=== PATIENT | female | born 1985 | race Caucasian/White ===

== ENCOUNTER 2021-06-19 02:00 | Emergency (ER) | payer SELFPAY ==
[2021-06-19] MEDS ORDERED: Cephalexin 500 MG Cap PO ONE (02:42)
[2021-06-19] MEDS ORDERED: Diphtheria,Pertussis(Acell),Tetanus Vaccine 0.5 ML Syringe IM ONE (02:44)
--- NOTE | 2021-06-19 02:49 | EDM.PDOC ---
ED HPI GENERAL MEDICAL PROBLEM - General Chief Complaint: Lower Extremity Injury/Pain Stated Complaint: Leg injury, one week ago Time Seen by Provider: 06/19/21 02:35 Source of Information: Reports: Patient History Limitations: Reports: No Limitations - History of Present Illness INITIAL COMMENTS - FREE TEXT/NARRATIVE: Patient comes emergency department today with complaints of redness and swelling to her left lower extremity. This patient approximately a week ago was standing on a chair when she lost her balance falling backwards onto the ground striking her head but did not lose consciousness and during the fall somehow struck the left anterior aspect of her left lower extremity. For the past week she has been ambulating on it with some pain that has pretty much resolved. Today she noticed that she had some increased swelling to the left lower extremity but no increased pain. When she fell she did not lose consciousness. Today she has no head neck or back pain. She denies any paresthesias of her lower extremities. She is able to ambulate without difficulty. She is concerned for the increased swelling on her tibia of the left lower extremity. She has had no fever or chills. No difficulty with ambulation. She is unsure of when her last tetanus shot was. right lower leg palacios Pain Score (Numeric/FACES): 7 - Related Data Allergies Allergy/AdvReac Type Severity Reaction Status Date / Time egg yolk Allergy Nausea and Verified 06/19/21 03:04 Vomiting Latex, Natural Rubber Allergy Hives Verified 06/19/21 03:02 Home Meds: Home Meds cephALEXin [Cephalexin] 500 mg PO QID #28 capsule 06/19/21 [Rx] Review of Systems - Review of Systems Review Of Systems: Comprehensive ROS is negative, except as noted in HPI. ED EXAM, GENERAL - Physical Exam Exam: See Below Exam Limited By: No Limitations General Appearance: Alert, WD/WN, No Apparent Distress Nose: Normal Inspection Throat/Mouth: Normal Inspection Head: Atraumatic, Normocephalic Neck: No: Tender Lateral, Tender Midline Respiratory/Chest: No Respiratory Distress Cardiovascular: Normal Peripheral Pulses Peripheral Pulses: 2+: Posterior Tibial (L), Posterior Tibial (R), Dorsalis Pedis (L), Dorsalis Pedis (R) GI/Abdominal: Normal Bowel Sounds, Soft Back Exam: Normal Inspection, Full Range of Motion. No: Paraspinal Tenderness, Vertebral Tenderness Extremities: Other (There is no bony deformity. There is no crepitus. She is able to ambulate easily without a limp or change in gait.). No: Normal Inspection (Left lower extremity. There is an approximate 5 cm vertical laceration on the proximal anterior aspect the left tibia. This is well scabbed over. There is some redness warmth and swelling to this area without exudate. No concerns for absess. THere is bruising to the lower ankle area. ), Tammie's Sign Neurological: Alert, Oriented Psychiatric: Normal Affect, Normal Mood Skin Exam: Warm, Dry, Intact, Normal Color, No Rash Course - Vital Signs Last Recorded V/S: Last Vital Signs Temp 97.1 F 06/19/21 02:00 Pulse 94 06/19/21 02:00 Resp 16 06/19/21 02:00 BP 112/71 06/19/21 02:00 Pulse Ox 98 06/19/21 02:00 - Orders/Labs/Meds Meds: Medications Discontinued Medications Generic Name Dose Route Start Last Admin Trade Name Ila PRN Reason Stop Dose Admin Cephalexin 500 mg 06/19/21 02:42 06/19/21 03:08 Cephalexin 500 Mg Cap PO 06/19/21 02:43 500 mg ONETIME ONE Administration Diphtheria/Tetanus/Acell Pertussis 0.5 ml 06/19/21 02:44 06/19/21 03:05 Diphtheria,Pertussis(Acell),Tetanus Vaccine 0.5 Ml Syringe IM 06/19/21 02:45 0.5 ml .ONCE ONE Administration - Re-Assessments/Exams Free Text/Narrative Re-Assessment/Exam: Her tetanus is updated. I do not feel that this patient needs an x-ray as she has been ambulating on it for a week and she ambulates without difficulty and her pain is pretty much resolved. I have concerns for a secondary infection to her abrasion to the proximal anterior tibia. Her tetanus shot was updated. We will start her on Keflex. She is comfortable with this plan and her questions are answered. Departure - Departure Time of Disposition: 02:49 Disposition: Home, Self-Care 01 Clinical Impression: Abrasion of lower extremity with infection Qualifiers: Encounter type: initial encounter Laterality: left Qualified Code(s): S80.812A - Abrasion, left lower leg, initial encounter - Discharge Information *PRESCRIPTION DRUG MONITORING PROGRAM REVIEWED*: Not Applicable *COPY OF PRESCRIPTION DRUG MONITORING REPORT IN PATIENT JOSÉ MIGUEL: Not Applicable Prescriptions: cephALEXin [Cephalexin] 500 mg PO QID #28 capsule Instructions: Pain Medicine Instructions, [id number], Abrasion, [id number] Forms: ED Department Discharge Additional Instructions: Tylenol and or Ibuprofen as needed for discomfort. Cephalexin 1 capsule 4 times a day for the next 7days. RX sent to [facility]. Recheck if new or worsening symptoms. Follow up with PCP as needed.
== END 2021-06-19 03:05 | disposition home or self-care (01) ==
LOC: VM.ED 02:00
DX: S80.812A Abrasion, left lower leg, initial encounter (principal); Z91.012 Allergy to eggs; Z91.040 Latex allergy status; Z23 Encounter for immunization; W18.09XA Striking against other object with subsequent fall, initial encounter
CPT/HCPCS: 90471; 90715; 99283; A9270-GY